=== PATIENT | male | born 1990 | race Caucasian/White ===

== ENCOUNTER 2020-06-17 08:25 | Emergency (ER) | payer OTHER ==
[~2020-06-17] VITALS: Ht 175.3 cm; Wt 69.3 kg
--- NOTE | 2020-06-17 08:57 | NUR ---
PT IS A 29 MALE COMPLAINING OF CHEST PRESSURE OVER MID TO LEFT SIDE OF THE CHEST WITH SOB FOR 3 WEEKS. WAS WORKED UP AT [facility] WITH NO RESOLVE. PT IS NOT IN ACUTE DISTRESS. 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 CALL LIGHT WITHIN REACH.
[2020-06-17] MEDS ORDERED: LORazepam 2 MG/ML, 1ML IVPush ONE (09:00)
[2020-06-17] MEDS ORDERED: SODIUM CHLORIDE 0.9% 1,000ML IVBOLUS ONE (09:00)
[2020-06-17] MEDS ORDERED: SODIUM CHLORIDE FLUSH 10ML SYR IVF ONE (09:00)
[2020-06-17] MEDS ORDERED: LORazepam 2 MG/ML, 1ML ONE (09:15)
[2020-06-17 09:43] LABS: BASOPHILS % (AUTO) 1 % (0-1); EOSINOPHILS % (AUTO) 4 % (1-7); LYMPHOCYTES % (AUTO) 30 % (22-44); MEAN CORPUSCULAR HEMOGLOBIN 29.9 pg (27.5-34.5); MEAN CORPUSCULAR HGB CONC 34.4 g/dL (33.2-36.2); MEAN PLATELET VOLUME 8.1 fL (7.4-10.4); MONOCYTES % (AUTO) 11 % (2-9); NEUTROPHILS % (AUTO) 55 % (42-75); PLATELET COUNT 214 x10^3/uL (130-400); RED BLOOD COUNT 4.68 x10^6/uL (4.38-5.82); RED CELL DISTRIBUTION WIDTH 12.9 % (9.4-14.8)
[2020-06-17 09:52] LABS: ALBUMIN 4.7 g/dL (3.4-5.0); ANION GAP 6 mmol/L (5-15); CHLORIDE 110 mmol/L (98-107)
[2020-06-17 09:59] LABS: ALANINE AMINOTRANSFERASE 23 U/L (12-78); ALKALINE PHOSPHATASE 49 U/L (45-117); BILIRUBIN,TOTAL 0.5 mg/dL (0.2-1.0); CREATININE 0.96 mg/dL (0.7-1.3); TOTAL PROTEIN 7.9 g/dL (6.4-8.2); TROPONIN I < 0.015 ng/mL (0.000-0.045)
[2020-06-17 10:01] LABS: MD NO
--- NOTE | 2020-06-17 10:10 | NUR ---
PATIENT IS RESTING COMFORTABLY TALKING TO SPOUSE ON HIS CELL PHONE. BECAUSE OF HIS RESP ISOLATION HE WAS ADVISED HIS WOULD NOT BE ABLE TO COME BACK TO VISIT. HIS CALL LIGHT IS WITHIN REACH. VITAL SIGNS UPDATED AND CONTINUE MONITORING ON DISTRICT RANGER.NO ADDITIONAL NEEDS UPDATED AT THIS TIME./
--- NOTE | 2020-06-17 10:38 | NUR ---
PATIENT IS FEELING LESS ANXIOUS AFTER ATIVAN. RESTING COMFORTABLY IN BED USING HIS CELL PHONE. CALL LIGHT WITHIN REACH.
[2020-06-17] MEDS ORDERED: MAALOX/HYOSCYAMINE/LIDOCAINE 45 ML BTL ONE (11:05)
[2020-06-17] MEDS ORDERED: MAALOX/HYOSCYAMINE/LIDOCAINE 45 ML BTL PO ONE (11:30)
[2020-06-17 11:46] VITALS: BP 127/70
--- NOTE | 2020-06-17 11:47 | NUR ---
Patient/Caregiver given discharge instructions and they have confirmed that they understand the instructions. Patient ambulatory with steady gait.
== END 2020-06-17 12:13 | disposition home or self-care (01) ==
LOC: ED 10:06
DX: R07.89 Other chest pain (principal); F41.1 Generalized anxiety disorder
CPT/HCPCS: 36415; 71045; 80053; 84484; 85025; 85379; 93005; 96361; 96374; 99285; J2060; J7030

== ENCOUNTER → 2020-08-28 | Outpatient (CLI) | payer OTHER ==
[~2020-08-28] MED LIST: OMNIPAQUE 350 MG/ML, 100ML BOTTLE ONE
== END | disposition home or self-care (01) ==
LOC: RAD 12:51
PROVIDERS: ATTEND Family Medicine
DX: R10.84 Generalized abdominal pain (principal)
CPT/HCPCS: 74177; Q9967